=== PATIENT | female | born 1975 | race Caucasian/White ===

== ENCOUNTER 2018-01-01 17:31 | Emergency (ER) | payer SELFPAY | END 2018-01-01 18:00 | disposition home or self-care (01) | LOC: ERS 17:31 | DX: G62.9 Polyneuropathy, unspecified (principal); F17.210 Nicotine dependence, cigarettes, uncomplicated | CPT/HCPCS: 93005 ==

== ENCOUNTER 2018-04-14 23:16 | Emergency (ER) | payer SELFPAY ==
[2018-04-14 23:41] LABS: Pregnancy Test - Urine (BHCG) POSITIVE (Negative); Pregu Control Background? CLEAR/WHITE (CLR/WHITE); Pregu Control Bar Appear? YES (CONTROL BAR)
[2018-04-14 23:42] LABS: Specific Gravity 1.025 (1.002-1.036)
--- NOTE | 2018-04-14 23:52 | RAD ---
RADIOGRAPH RIGHT FOOT 3 VIEWS: 04/14/18 HISTORY: Traumatic right foot pain in 47-year-old female. FINDINGS: No fracture or dislocation. IMPRESSION: Negative. POS: KRUNAL
== END 2018-04-15 00:24 | disposition home or self-care (01) ==
LOC: SCSER 23:16
DX: O9A.211 Injury, poisoning and certain other consequences of external causes complicating pregnancy, first trimester (principal); S93.601A Unspecified sprain of right foot, initial encounter; O09.521 Supervision of elderly multigravida, first trimester; O16.1 Unspecified maternal hypertension, first trimester; O99.331 Smoking (tobacco) complicating pregnancy, first trimester
CPT/HCPCS: 81025

== ENCOUNTER 2018-04-25 08:15 | Emergency (ER) | payer SELFPAY ==
[2018-04-25] MEDS ORDERED: HYDROcodone/Acetaminophen 10/325 mg Tablet ONE ×2 (08:33→09:50)
[2018-04-25 09:52] LABS: #Eosinphils 0.4 thou/uL (0.0-0.7); #Lymphocytes 2.3 thou/uL (1.20-3.40); #Monocytes 0.7 thou/uL (0.11-0.59); #Neutrophils 9.5 thou/uL (1.40-6.50); %Basophils 0.4 % (0.0-1.0); %Eosinophils 2.8 % (0.0-10.0); %Lymphocytes 17.9 % (21.0-51.0); %Monocytes 5.3 % (0.0-10.0); %Neutrophils 73.6 % (42.0-75.0); Hemoglobin 10.5 g/dL (12.0-16.0); Hypochromia SLIGHT = 6-15 cells (100X) (0-5/hpf); MDiff Complete? YES; Mean Corpuscular Hemoglobin 21.2 pg (27.0-31.0); Mean Corpuscular Volume 70.5 fL (78.0-98.0); Mean Platelet Volume 10.3 fL (7.4-10.4); Microcytosis SLIGHT = 6-15 cells (100X) (0-5/hpf); Platelet Count 341 thou/uL (130-400); RBC Distribution Width 17.5 % (11.5-14.5); Red Blood Cell (RBC) Count 4.95 mill/uL (4.20-5.40); White Blood Cell (WBC) Count 12.9 thou/uL (4.8-10.8)
--- NOTE | 2018-04-25 10:41 | ULT ---
ULTRASOUND AT LESS THAN FOURTEEN WEEKS: HISTORY: A 42-year-old female with a history of vaginal bleeding with a prior positive test. TECHNIQUE: Transabdominal and transvaginal evaluation is performed. No vascular duplex examination is performed . FINDINGS: There is a nonviable intrauterine fetus with a crown-rump length of 2.9 cm, equivalent to a ges tational age of 9 weeks 5 days. The gestational sac is within the lower uterine segment. No h eartbeat is seen, evidence for demise. IMPRESSION: Evidence for early demise. No heartbeat is seen. The gestational sac is in the lower ut erine segment. Gestational age by crown-rump length is 9 weeks and 5 days. POS: KRUNAL
[2018-04-25 10:48] LABS: Bilirubin Negative (Negative); Blood, Urine Large (Negative); Clarity CLOUDY (Clear); Glucose, Urine (Dipstick) Negative (Negative); Leukocyte Small (Negative); Nitrite Negative (Negative); Protein, Urine (Dipstick) 30 mg/dL (Neg-Trace); pH, Urine 5.5 (5.0-9.0)
[2018-04-25 10:50] LABS: Bacteria/HPF None Seen HPF (None Seen); Hyaline Casts/LPF 0-3 HYALINE CAST LPF (0-3 Hyaline); Pathc Cast-AUWi Flag 0.17 (0-2.49); RBC/HPF GREATER THAN 50-TNTC HPF (0-3); Squamous Epithelial None Seen HPF (0-3)
== END 2018-04-25 10:50 | disposition home or self-care (01) ==
LOC: ERS 08:15
DX: O03.4 Incomplete spontaneous abortion without complication (principal)
CPT/HCPCS: 36415; 76856; 81003; 81015; 84702; 85025; 86850; 86900; 86901; 88305

== ENCOUNTER 2021-03-07 23:02 | Emergency (ER) | payer SELFPAY ==
[2021-03-08 13:05] LABS: SARS-CoV-2 PCR by NAA DETECTED (NotDetected)
== END 2021-03-08 02:27 | disposition home or self-care (01) ==
LOC: ERS 23:02
DX: U07.1 COVID-19 (principal); I10 Essential (primary) hypertension; F17.210 Nicotine dependence, cigarettes, uncomplicated
CPT/HCPCS: 71045; 99283; U0003; U0005

== ENCOUNTER 2021-03-31 22:20 | Emergency (ER) | payer SELFPAY ==
[2021-03-31 23:46] LABS: #Eosinphils 0.2 thou/uL (0.0-0.7); #Lymphocytes 2.2 thou/uL (1.20-3.40); #Monocytes 0.5 thou/uL (0.11-0.59); #Neutrophils 3.8 thou/uL (1.40-6.50); %Basophils 0.1 % (0.0-1.0); %Eosinophils 3.2 % (0.0-10.0); %Lymphocytes 32.6 % (21.0-51.0); %Monocytes 7.7 % (0.0-10.0); %Neutrophils 56.4 % (42.0-75.0)
[2021-03-31 23:59] LABS: Hemoglobin 13.4 g/dL (12.0-16.0); MDiff Complete? YES; Mean Corpuscular HGB CONC 30.5 g/dL (32.0-36.0); Mean Corpuscular Hemoglobin 22.4 pg (27.0-31.0); Mean Corpuscular Volume 73.5 fL (78.0-98.0); Mean Platelet Volume 10.8 fL (7.4-10.4); Microcytosis SLIGHT = 6-15 cells (100X) (0-5/hpf); Platelet Count 311 thou/uL (130-400); Platelet Morphology Comment Appears Adequate; RBC Distribution Width 20.1 % (11.5-14.5); Red Blood Cell (RBC) Count 5.98 mill/uL (4.20-5.40); White Blood Cell (WBC) Count 6.7 thou/uL (4.8-10.8)
[2021-04-01 00:04] LABS: ALT (SGPT) 14 U/L (8-55); AST (SGOT) 22 U/L (5-34); Albumin 3.6 g/dL (3.5-5.0); Alkaline Phosphatase 134 U/L (40-110); Anion Gap 13 mmol/L (10-20); BUN (Urea Nitrogen) 15 mg/dL (7.0-18.7); Bilirubin, Total 1.4 mg/dL (0.2-1.2); Calc. Creatinine Clearance 0 mL/min (70-130); Calcium 9.1 mg/dL (7.8-10.44); Carbon Dioxide 22 mmol/L (22-29); Chloride 107 mmol/L (98-107); Globulin 3.5 g/dL (2.4-3.5); Glucose 97 mg/dL (70-105); Potassium 3.8 mmol/L (3.5-5.1); Protein, Total 7.1 g/dL (6.0-8.3); Sodium 138 mmol/L (136-145)
== END 2021-04-01 01:37 | disposition home or self-care (01) ==
LOC: ERS 22:20
DX: R60.0 Localized edema (principal); I10 Essential (primary) hypertension; F17.210 Nicotine dependence, cigarettes, uncomplicated; Z79.899 Other long term (current) drug therapy
CPT/HCPCS: 36415; 71045; 80053; 83880; 85025; 99284

== ENCOUNTER 2022-04-03 01:07 | Emergency (ER) | payer SELFPAY ==
[2022-04-03 01:39] LABS: #Basophils 0.1 thou/uL (0.0-0.2); #Eosinphils 0.2 thou/uL (0.0-0.7); #Lymphocytes 1.8 thou/uL (1.20-3.40); #Monocytes 0.5 thou/uL (0.11-0.59); #Neutrophils 4.2 thou/uL (1.40-6.50); %Basophils 1.2 % (0.0-1.0); %Eosinophils 3.1 % (0.0-10.0); %Lymphocytes 26.6 % (21.0-51.0); %Monocytes 7.2 % (0.0-10.0); %Neutrophils 61.9 % (42.0-75.0); Hemoglobin 14.9 g/dL (12.0-16.0); Mean Corpuscular HGB CONC 31.2 g/dL (32.0-36.0); Mean Corpuscular Hemoglobin 26.2 pg (27.0-31.0); Mean Corpuscular Volume 83.9 fL (78.0-98.0); Mean Platelet Volume 9.9 fL (7.4-10.4); Platelet Count 190 thou/uL (130-400); RBC Distribution Width 16.3 % (11.5-14.5); White Blood Cell (WBC) Count 6.8 thou/uL (4.8-10.8)
[2022-04-03 01:58] LABS: ALT (SGPT) 15 U/L (8-55); AST (SGOT) 24 U/L (5-34); Albumin 3.8 g/dL (3.5-5.0); Alkaline Phosphatase 181 U/L (40-110); Anion Gap 15 mmol/L (10-20); BUN (Urea Nitrogen) 16 mg/dL (7.0-18.7); Calc. Creatinine Clearance 0 mL/min (70-130); Calcium 9.4 mg/dL (7.8-10.44); Carbon Dioxide 24 mmol/L (22-29); Chloride 105 mmol/L (98-107); Estimated GFR 70; Globulin 3.8 g/dL (2.4-3.5); Glucose 95 mg/dL (70-105); Potassium 4.4 mmol/L (3.5-5.1); Protein, Total 7.6 g/dL (6.0-8.3); Sodium 140 mmol/L (136-145)
== END 2022-04-03 03:28 | disposition home or self-care (01) ==
LOC: ERS 01:07
DX: B37.2 Candidiasis of skin and nail (principal); I10 Essential (primary) hypertension; F17.210 Nicotine dependence, cigarettes, uncomplicated
CPT/HCPCS: 36415; 80053; 85025; 99283

== ENCOUNTER 2023-03-09 15:04 | Inpatient (IN) | payer SELFPAY ==
[2023-03-09 15:59] LABS: #Basophils 0.1 thou/uL (0.0-0.2); #Monocytes 0.4 thou/uL (0.11-0.59); #Neutrophils 6.7 thou/uL (1.40-6.50); %Basophils 0.8 % (0.0-1.0); %Eosinophils 0.5 % (0.0-10.0); %Lymphocytes 14.7 % (21.0-51.0); %Monocytes 5.1 % (0.0-10.0); %Neutrophils 78.3 % (42.0-75.0); Hematocrit 51.2 % (36.0-47.0); Hemoglobin 16.2 g/dL (12.0-16.0); Mean Corpuscular HGB CONC 31.6 g/dL (32.0-36.0); Mean Corpuscular Hemoglobin 28.6 pg (27.0-31.0); Mean Corpuscular Volume 90.5 fl (78.0-98.0); Mean Platelet Volume 12.2 fL (7.4-10.4); Platelet Count 266 10x3/uL (130-400); RBC Distribution Width 18.7 % (11.5-14.5); Red Blood Cell (RBC) Count 5.66 mill/uL (4.20-5.40); White Blood Cell (WBC) Count 8.6 10x3/uL (4.8-10.8)
[2023-03-09] MEDS ORDERED: Rocuronium Bromide 10 MG/ML (10ML VIAL) ONE (15:59)
[2023-03-09] MEDS ORDERED: Propofol 1,000 MG/100 ML VIAL IV ONE ×2 (15:59→16:00)
[2023-03-09] MEDS ORDERED: niCARdipine 25 MG/10 ML SDV ONE (16:04)
[2023-03-09] MEDS ORDERED: Labetalol HCl 100 MG/20 ML VIAL ONE (16:11)
[2023-03-09 16:13] LABS: Bacteria/HPF None Seen HPF (None Seen); Bilirubin 1+ (Negative); Blood, Urine 2+ (Negative); CAUTI Indications for Culture Alt mental st,lethar; Clarity Clear (Clear); Glucose, Urine (Dipstick) 50 mg/dL (Negative); Ketone, Urine 10 mg/dL (Negative); Leukocyte Negative Leu/uL (Negative); Nitrite Negative (Negative); Protein, Urine (Dipstick) 600 mg/dL (Neg-Trace); Specific Gravity, Urine 1.037 (1.002-1.036); Squamous Epithelial 0-3 HPF (0-3); WBC/HPF 0-3 HPF (0-3)
[2023-03-09 16:16] LABS: BHCG - Serum Negative (NEGATIVE); Pregs Control Background? CLEAR/WHITE (CLR/WHITE); Pregs Control Bar Appear? YES (CONTROL BAR)
[2023-03-09 16:20] LABS: Amphetamine Detected (NotDetected); Barbiturates Screen Not Detected (NotDetected); Benzodiazepine Screen Detected (NotDetected); Cocaine Metabolite Screen Not Detected (NotDetected); Methadone Not Detected (NotDetected); Methamphetamine Detected (NotDetected); Opiate Screen Detected (NotDetected); Oxycodone Screen Not Detected (NotDetected); Phencyclidine (PCP) Not Detected (NotDetected); THC/Cannabinoid Screen Detected (NotDetected); Tricyclic Screen Not Detected (NotDetected)
[2023-03-09 16:23] LABS: Acetaminophen Less than 10 mcg/mL (10.0-30.0); Alcohol Less than 10.0 mg/dL (Less than 10); Magnesium 1.6 mg/dL (1.6-2.6); Salicylate Less than 8.0 mg/dL (15.0-30.0)
[2023-03-09 16:23] LABS: Urine Culture Reflex No No
[2023-03-09 16:35] LABS: ALT (SGPT) 35 U/L (8-55); AST (SGOT) 61 U/L (5-34); Alkaline Phosphatase 214 U/L (40-110); Anion Gap 19 mmol/L (10-20); BUN (Urea Nitrogen) 23 mg/dL (7.0-18.7); Bilirubin, Total 3.3 mg/dL (0.2-1.2); Calc. Creatinine Clearance 0 mL/min (70-130); Calcium 10.4 mg/dL (7.8-10.44); Carbon Dioxide 19 mmol/L (22-29); Chloride 104 mmol/L (98-107); Estimated GFR 58; Globulin 3.9 g/dL (2.4-3.5); Glucose 167 mg/dL (70-105); Potassium 3.7 mmol/L (3.5-5.1); Protein, Total 7.9 g/dL (6.0-8.3); Sodium 138 mmol/L (136-145)
[2023-03-09 16:38] LABS: Actual Bicarbonate (HCO3a) 16.7 mEq/L (22-28); Analyzer IN Cardio ER; CO2 Tension 29.6 mmHg (35.0-45.0); Calcium, Ionized (arterial) 1.17 mmol/L (1.12-1.30); Carboxyhemoglobin (COHb) 1.1 gm% (0.0-3.0); Hematocrit-ABG 49 % (36.0-47.0); Hemoglobin (Hb) 16.5 g/dL (12.0-16.0); O2 Tension (PaO2), arterial 319.1 mmHg (80.0-100.0); pH, Arterial 7.368 (7.35-7.45)
[2023-03-09 16:39] LABS: Troponin I 0.564 ng/mL (< 0.028)
[2023-03-09 16:41] LABS: Puncture Site Right Radial
[2023-03-09] MEDS ORDERED: Sodium Chloride 3% 250 ML IVPB SCH (16:45)
[2023-03-09 16:54] LABS: Thyroid Stimulating Hormone 3.4633 uIU/mL (0.35-4.94)
[2023-03-09] MEDS ORDERED: Electrolyte Replacement Protocol 1 EACH FS ONE (17:17)
[2023-03-09 17:23] LABS: INR-International Normal Ratio 1.3; PTT 43.4 sec (22.9-36.1); Prothrombin Time 16.5 sec (12.0-14.7)
[2023-03-09] MEDS ORDERED: Mannitol 12.5 GM/50 ML ONE ×2 (17:26→17:55)
[2023-03-09] MEDS ORDERED: Glucagon 1 MG/ML KIT IM PRN (17:28)
[2023-03-09] MEDS ORDERED: HumaLOG 300 UNITS/3 ML VIAL SC PRN (17:28)
[2023-03-09] MEDS ORDERED: Dextrose 50% Abboject 50 ML SYRINGE SLOW IVP PRN (17:28)
[2023-03-09] MEDS ORDERED: Dextrose 5% in Water 1,000 ML IV PRN (17:28)
[2023-03-09] MEDS ORDERED: Electrolyte Replacement Protocol FS PRN (17:30)
[2023-03-09] MEDS ORDERED: niCARdipine 50 MG, Admixture Fee 1 EACH in Sodium Chloride 0.9% 250 ML 230 ML IVPB SCH (17:30)
[2023-03-09] MEDS ORDERED: manNITOL 20% 500 ML ONE (17:53)
[2023-03-09] MEDS ORDERED: fentaNYL PF 100 MCG/2 ML SYRINGE ONE (17:56)
[2023-03-09] MEDS ORDERED: EPINEPHrine 1 MG/ML AMP ONE (18:00)
[2023-03-09] MEDS ORDERED: Lidocaine 1% (PF) 30 ML VIAL ONE ×2 (18:00→18:02)
[2023-03-09] MEDS ORDERED: Bacitracin Zinc Ointment 30 gm TUBE ONE (18:00)
[2023-03-09] MEDS ORDERED: Acetaminophen 650 MG Suppository PR PRN (18:11)
[2023-03-09] MEDS ORDERED: Bisacodyl 10 MG SUPP PR PRN (18:11)
[2023-03-09] MEDS ORDERED: Ondansetron PF 4 MG/2 ML Vial IVP PRN (18:11)
[2023-03-09] MEDS ORDERED: LevoFLOXacin 500 mg/D5W 100 ML BAG ONE (18:19)
[2023-03-09] MEDS ORDERED: Clindamycin/D5W 900 mg/50 ml Premix Bag ONE (18:21)
[2023-03-09] MEDS ORDERED: ePHEDrine Sulfate 50 MG/10 ML VIAL ONE (18:28)
[2023-03-09] MEDS ORDERED: Glycopyrrolate 0.2 MG/ML 5 ML SYRINGE ONE (18:28)
[2023-03-09] MEDS ORDERED: Thrombin 5000 UNITS/5 ML VIAL ONE (18:36)
[2023-03-09] MEDS ORDERED: Norepinephrine 4 MG/4 ML VIAL ONE (18:43)
[2023-03-09] MEDS ORDERED: Vasopressin 20 UNITS/ML VIAL ONE (18:43)
[2023-03-09] MEDS ORDERED: DISCONTINUE PREVIOUS NARCOTIC PAIN MEDICATIONS AND BENZODIAZEPINES FS SCH (18:45)
[2023-03-09] MEDS ORDERED: Fentanyl BOLUS 250 ML IVPB PRN (18:45)
[2023-03-09] MEDS ORDERED: Ventilator Sedation Protocol 1 EACH FS SCH (18:45)
[2023-03-09] MEDS ORDERED: Fentanyl CADD 100 ML IV SCH (18:45)
[2023-03-09] MEDS ORDERED: Propofol 1,000 MG/100 ML VIAL IV PRN (18:45)
[2023-03-09] MEDS ORDERED: Lorazepam 2 MG/ML VIAL SLOW IVP PRN (18:45)
[2023-03-09] MEDS ORDERED: Propofol BOLUS 1,000 MG/100 ML VIAL IV PRN (18:45)
[2023-03-09] MEDS ORDERED: Ipratropium/Albuterol 3 ML NEB NEB PRN (18:56)
[2023-03-09] MEDS ORDERED: Magnesium 2 GM/50 ML(in water) 2 GM in Premix Bag 1 BAG IVPB SCH (19:00)
[2023-03-09] MEDS ORDERED: Phenylephrine 10 MG/ML VIAL ONE ×4 (19:05→20:39)
[2023-03-09 20:16] LABS: HBSAg Index 0.27 S/CO (0-0.99); HIV (1/2) Antibody/Antigen Non-Reactive (NonReactive); HIV 1/2 INDEX 0.22 S/CO (<1.00); Hep B Surf Ag Non-Reactive S/CO (NonReactive); Hep C IgG Ab Non-Reactive S/CO (NonReactive); Hep C Index 0.07 S/CO (0-0.79)
[2023-03-09] MEDS ORDERED: Famotidine/PF 20 mg/2ml Vial SLOW IVP SCH (21:00)
[2023-03-09] MEDS ORDERED: NOREPINEPHRINE 8 MG/250 ML-D5W 250 ML ONE (21:23)
[2023-03-09] MEDS: NOREPINEPHRINE 8 MG/250 ML-D5W 250 ML IVPB SCH (21:30)
[2023-03-09 22:08] LABS: Anion Gap 10 mmol/L (10-20); BUN (Urea Nitrogen) 24 mg/dL (7.0-18.7); Calc. Creatinine Clearance 0 mL/min (70-130); Calcium 8.8 mg/dL (7.8-10.44); Carbon Dioxide 18 mmol/L (22-29); Chloride 111 mmol/L (98-107); Estimated GFR 62; Glucose 119 mg/dL (70-105); Potassium 3.8 mmol/L (3.5-5.1); Sodium 135 mmol/L (136-145)
[2023-03-09 22:16] LABS: Critical Call Chem Troponin I RESULT DECREASING; Troponin I 0.425 ng/mL (< 0.028)
[2023-03-09 22:52] VITALS: BMI 47.8
[2023-03-09] MEDS: Clindamycin 150 MG CAP PO SCH (22:54)
[2023-03-10] MEDS ORDERED: MANNITOL 20% IVPB SCH (01:00)
[2023-03-10 01:32] LABS: Critical Call Chem Troponin I RESULT DECREASING; Troponin I 0.375 ng/mL (< 0.028)
[2023-03-10 05:02] LABS: Hemoglobin A1c 5.4 % (4.0-6.0)
[2023-03-10 05:12] LABS: INR-International Normal Ratio 1.4; Prothrombin Time 17.8 sec (12.0-14.7)
[2023-03-10 05:23] LABS: ALT (SGPT) 29 U/L (8-55); AST (SGOT) 49 U/L (5-34); Albumin 2.8 g/dL (3.5-5.0); Alkaline Phosphatase 141 U/L (40-110); Anion Gap 10 mmol/L (10-20); BUN (Urea Nitrogen) 23 mg/dL (7.0-18.7); Bilirubin, Total 2.4 mg/dL (0.2-1.2); Calc. Creatinine Clearance 140 mL/min (70-130); Carbon Dioxide 20 mmol/L (22-29); Cardiac Risk 6.4 (Less than 4.5); Chloride 114 mmol/L (98-107); Cholesterol 116 mg/dl (< 200 Desired); Estimated GFR 73; Globulin 2.8 g/dL (2.4-3.5); Glucose 118 mg/dL (70-105); HDL Cholesterol 18 mg/dL (>60 Neg Risk); LDL Cholesterol, Calculated 84 mg/dL; Protein, Total 5.6 g/dL (6.0-8.3); Sodium 140 mmol/L (136-145); Triglycerides 68 mg/dL (Less than 150)
[2023-03-10] MEDS: Clindamycin 150 MG CAP PO SCH ×3 (05:30→22:19)
[2023-03-10 05:37] LABS: #Monocytes 0.6 thou/uL (0.11-0.59); #Neutrophils 5.5 thou/uL (1.40-6.50); %Basophils 0.4 % (0.0-1.0); %Lymphocytes 14.8 % (21.0-51.0); %Monocytes 8.2 % (0.0-10.0); %Neutrophils 76.5 % (42.0-75.0); Hemoglobin 13.5 g/dL (12.0-16.0); Mean Corpuscular HGB CONC 32.8 g/dL (32.0-36.0); Mean Corpuscular Hemoglobin 28.9 pg (27.0-31.0); Mean Platelet Volume 11.5 fL (7.4-10.4); Platelet Count 263 10x3/uL (130-400); RBC Distribution Width 18.4 % (11.5-14.5); Red Blood Cell (RBC) Count 4.67 mill/uL (4.20-5.40); White Blood Cell (WBC) Count 7.2 10x3/uL (4.8-10.8)
[2023-03-10 05:55] LABS: Hematocrit 41.1 % (36.0-47.0)
[2023-03-10 07:09] LABS: Actual Bicarbonate (HCO3a) 19.4 mEq/L (22-28); Base Excess (BEa) -2.4 mEq/L (-2.0 to +3.0); CO2 Tension 26.1 mmHg (35.0-45.0); Calcium, Ionized (arterial) 1.19 mmol/L (1.12-1.30); Carboxyhemoglobin (COHb) 0.6 gm% (0.0-3.0); Hematocrit-ABG 42 % (36.0-47.0); Hemoglobin (Hb) 14.2 g/dL (12.0-16.0); O2 Tension (PaO2), arterial 91.2 mmHg (80.0-100.0); Potassium - ABG Lab 3.82 mmol/L (3.70-5.30); pH, Arterial 7.488 (7.35-7.45)
[2023-03-10 07:13] LABS: ALV-art Gradient 161.375 mmHg (0-20); Puncture Site ALINE
[2023-03-10] MEDS ORDERED: Magnesium 2 GM/50 ML(in water) 2 GM in Premix Bag 1 BAG IVPB SCH (08:00)
[2023-03-10] MEDS: Pantoprazole 40 MG VIAL IVP SCH (08:50)
[2023-03-10] MEDS: NOREPINEPHRINE 8 MG/250 ML-D5W 250 ML IVPB SCH (14:00)
[2023-03-10] MEDS ORDERED: LevoFLOXacin 500 mg/D5W 500 MG in Premix Bag 1 BAG IVPB SCH (18:00)
[2023-03-10 23:28] LABS: Sodium 152 mmol/L (136-145)
[2023-03-11 04:35] LABS: #Basophils 0.1 thou/uL (0.0-0.2); #Eosinphils 0.1 thou/uL (0.0-0.7); #Monocytes 0.8 thou/uL (0.11-0.59); #Neutrophils 4.4 thou/uL (1.40-6.50); %Basophils 0.8 % (0.0-1.0); %Eosinophils 1.8 % (0.0-10.0); %Lymphocytes 18.9 % (21.0-51.0); %Monocytes 11.5 % (0.0-10.0); %Neutrophils 66.5 % (42.0-75.0); Hematocrit 44.1 % (36.0-47.0); Mean Corpuscular HGB CONC 31.7 g/dL (32.0-36.0); Mean Corpuscular Hemoglobin 28.6 pg (27.0-31.0); Mean Platelet Volume 11.5 fL (7.4-10.4); Platelet Count 194 10x3/uL (130-400); RBC Distribution Width 19.3 % (11.5-14.5); White Blood Cell (WBC) Count 6.6 10x3/uL (4.8-10.8)
[2023-03-11 04:55] LABS: Anion Gap 11 mmol/L (10-20); BUN (Urea Nitrogen) 21 mg/dL (7.0-18.7); Calc. Creatinine Clearance 139 mL/min (70-130); Calcium 9.8 mg/dL (7.8-10.44); Carbon Dioxide 21 mmol/L (22-29); Chloride 125 mmol/L (98-107); Estimated GFR 73; Glucose 103 mg/dL (70-105); Potassium 3.5 mmol/L (3.5-5.1)
[2023-03-11 05:04] LABS: Sodium 153 mmol/L (136-145)
[2023-03-11] MEDS: Clindamycin 150 MG CAP PO SCH (05:32)
[2023-03-11] MEDS: NOREPINEPHRINE 8 MG/250 ML-D5W 250 ML IVPB SCH (05:43)
[2023-03-11 07:57] LABS: Actual Bicarbonate (HCO3a) 21.4 mEq/L (22-28); Base Excess (BEa) -1.6 mEq/L (-2.0 to +3.0); CO2 Tension 31.3 mmHg (35.0-45.0); Calcium, Ionized (arterial) 1.32 mmol/L (1.12-1.30); Carboxyhemoglobin (COHb) 1.4 gm% (0.0-3.0); Hematocrit-ABG 43 % (36.0-47.0); Hemoglobin (Hb) 14.6 g/dL (12.0-16.0); O2 Tension (PaO2), arterial 79.7 mmHg (80.0-100.0); Potassium - ABG Lab 3.39 mmol/L (3.70-5.30); pH, Arterial 7.452 (7.35-7.45)
[2023-03-11 07:58] LABS: ALV-art Gradient 237.675 mmHg (0-20); Puncture Site ALINE
[2023-03-11] MEDS ORDERED: Potassium Chloride 20 MEQ in Premix Bag 1 BAG IVPB SCH (08:00)
[2023-03-11 08:06] LABS: Phosphorus 2.4 mg/dL (2.3-4.7)
[2023-03-11] MEDS: Pantoprazole 40 MG VIAL IVP SCH (08:55)
[2023-03-11] MEDS ORDERED: Potassium Phosphate 30 MMOL in Sodium Chloride 0.9% 250 ML 250 ML IVPB SCH (10:30)
[2023-03-11 10:36] VITALS: BP 104/62
[2023-03-11 12:55] VITALS: TEMP 98
== END 2023-03-11 09:50 | disposition expired | DRG 23 ==
LOC: SUATTDRO 15:04 → ERS 15:04 → SDC/OP 18:21 → CCU 18:22
PROVIDERS: ADMIT Internal Medicine; ATTEND Hospitalist
PROC: 009600Z Drainage of Cerebral Ventricle with Drainage Device, Open Approach (ICD-10-PCS; principal; 2023-03-09)
PROC: 4A10X4Z Monitoring of Central Nervous Electrical Activity, External Approach (ICD-10-PCS; 2023-03-09)
PROC: 0BH17EZ Insertion of Endotracheal Airway into Trachea, Via Natural or Artificial Opening (ICD-10-PCS; 2023-03-09)
PROC: 5A1945Z Respiratory Ventilation, 24-96 Consecutive Hours (ICD-10-PCS; 2023-03-09)
PROC: 009600Z Drainage of Cerebral Ventricle with Drainage Device, Open Approach (ICD-10-PCS; 2023-03-09)
PROC: 4A133R1 Monitoring of Arterial Saturation, Peripheral, Percutaneous Approach (ICD-10-PCS; 2023-03-09)
PROC: 3E033XZ Introduction of Vasopressor into Peripheral Vein, Percutaneous Approach (ICD-10-PCS; 2023-03-09)
DX: I61.5 Nontraumatic intracerebral hemorrhage, intraventricular (principal); G93.6 Cerebral edema; J96.01 Acute respiratory failure with hypoxia; I16.1 Hypertensive emergency; E87.1 Hypo-osmolality and hyponatremia; Z68.41 Body mass index [BMI] 40.0-44.9, adult; I50.30 Unspecified diastolic (congestive) heart failure; R40.20 Unspecified coma; E66.9 Obesity, unspecified; J44.9 Chronic obstructive pulmonary disease, unspecified; G47.33 Obstructive sleep apnea (adult) (pediatric); Z88.0 Allergy status to penicillin; Z88.6 Allergy status to analgesic agent; Z79.899 Other long term (current) drug therapy; Z79.82 Long term (current) use of aspirin; E78.5 Hyperlipidemia, unspecified; F15.10 Other stimulant abuse, uncomplicated; Z91.198 Patient's noncompliance with other medical treatment and regimen for other reason; F12.10 Cannabis abuse, uncomplicated; F11.10 Opioid abuse, uncomplicated; F17.210 Nicotine dependence, cigarettes, uncomplicated; Z90.49 Acquired absence of other specified parts of digestive tract; I11.0 Hypertensive heart disease with heart failure
CPT/HCPCS: 31500; 36416; 51701; 70450; 71045; 78610; 80048; 80053; 80061; 80306; 80307; 81001; 82805; 83036; 83735; 83930; 83935; 84100; 84300; 84443; 84484; 84703; 85025; 85610; 85730; 93005; 94002; 94003; 95816; 95819; 95957; 96365; 96366; 96367; 96374; 97139; 99292; A9521; C1729; C9113; J0171; J1956; J2001; J2150; J2370; J2597; J2704; J3475; J3490; J7050; J7131; J7799